=== PATIENT | male | born 1965 | race African-American/Black ===

== ENCOUNTER 2017-01-14 17:14 | Inpatient (IN) | payer OTHER ==
[2017-01-14 19:06] VITALS: BMI 24.1
--- NOTE | 2017-01-14 21:34 | HP ---
CIWA Score - CIWA Score Nausea/Vomitin Muscle Tremors: 3 Anxiety: 3 Agitation: 3 Paroxysmal Sweats: 2 Orientation: 0-Oriented Tacttile Disturbances: 2-Mild Itch/Numbness/Burn Auditory Disturbances: 2-Mild Harshness/Frighten Visual Disturbances: 2-Mild Sensitivity Headache: 2-Mild CIWA-Ar Total Score: 22 Admission ROS BHS - HPI Chief Complaint: i need help to atop drinking alcohol,cocaine and marijuana Allergies/Adverse Reactions: Allergies Allergy/AdvReac Type Severity Reaction Status Date / Time No Known Allergies Allergy Verified 01/14/17 21:29 History of Present Illness: this 51 years old male with alcohol,cocaine and marijuana dependence,seeking detox ,last detox in 11/23 at [facility] type 2 dm hypertension hiv since 1988 weight loss nicotine dependence longest period of sobriety 1 year Exam Limitations: No Limitations - Ebola screening Have you traveled outside of the country in the last 21 days: No (N) Have you had contact with anyone from an Ebola affected area: No Have you been sick,other than usual withdrawal symptoms: No Do you have a fever: No - Review of Systems Constitutional: Loss of Appetite, Malaise, Night Sweats, Changes in sleep, Weakness, Unintentional Wgt. Loss EENT: reports: Nose Congestion Respiratory: reports: No Symptoms reported Cardiac: reports: No Symptoms Reported GI: reports: Diarrhea, Nausea, Vomiting, Abdominal cramping : reports: No Symptoms Reported Musculoskeletal: reports: Back Pain, Muscle Pain Integumentary: reports: Dryness Neuro: reports: Headache, Tremors Endocrine: reports: No Symptoms Reported Hematology: reports: No Symptoms Reported, Other (hiv) Psychiatric: reports: No Sypmtoms Reported, Mood/Affect Appropiate, Orientated x3 Patient History - Patient Medical History Hx Anemia: No Hx Asthma: No Hx Chronic Obstructive Pulmonary Disease (COPD): No Hx Cancer: No Hx Cardiac Disorders: No Hx Congestive Heart Failure: No Hx Hypertension: Yes (non compliance) Hx Hypercholesterolemia: Yes (no med) Hx Pacemaker: No HX Cerebrovascular Accident: No Hx Seizures: No Hx Dementia: No Hx Diabetes: Yes (on metformin 500 mgs po bid) Hx Gastrointestinal Disorders: No Hx Liver Disease: No Hx Genitourinary Disorders: No Hx Sexually Transmitted Disorders: No Hx Renal Disease (ESRD): No Hx Thyroid Disease: No Hx Human Immunodeficiency Virus (HIV): Yes (since 1988 non compliance supposed triumeq) Hx Hepatitis C: Yes (no treatment) Hx Depression: No Hx Suicide Attempt: No Hx Bipolar Disorder: No Hx Schizophrenia: No Other Medical History: no suicidal,no homicidal - Patient Surgical History Past Surgical History: No - PPD History Previous Implant?: Yes Documented Results: Negative w/o proof Implanted On Prior R Admission?: No PPD to be Administered?: Yes - Smoking Cessation Smoking history: Current every day smoker Have you smoked in the past 12 months: Yes Aproximately how many cigarettes per day: 10 Hx Chewing Tobacco Use: No Initiated information on smoking cessation: Yes 'Breaking Loose' booklet given: 01/14/17 - Substance & Tx. History Hx Alcohol Use: Yes Hx Substance Use: Yes Substance Use Type: Alcohol, Cocaine, Marijuana Hx Substance Use Treatment: Yes (last [facility]) - Substances Abused Alcohol Route: Oral Frequency: Daily (1pint of vodka/8 of 12 ozs of beer) Amount used: 1 pint of vodka/8 of 12 ozs of beer Age of first use: 17 Date of Last Use: 01/14/17 Cocaine Route: Smoking Frequency: Daily Amount used: 200$ Age of first use: 31 Date of Last Use: 01/14/17 Marijuana/Hashish Route: Smoking Frequency: Daily Amount used: 50$ Age of first use: 17 Date of Last Use: 01/14/17 Family Disease History - Family Disease History Family History: Denies Admission Physical Exam BHS - Vital Signs Vital Signs: Vital Signs - 24 hr 01/14/17 18:26 Temperature 98.2 F Pulse Rate 77 Respiratory 16 Rate Blood Pressure 129/93 - Physical General Appearance: Yes: Moderate Distress, Tremorous, Irritable, Sweating, Anxious HEENTM: Yes: Nasal Congestion Respiratory: Yes: Lungs Clear, Normal Breath Sounds, No Respiratory Distress Neck: Yes: Within Normal Limits, Supple, Trachea in good position Breast: Yes: Within Normal Limits Cardiology: Yes: Within Normal Limits, Regular Rhythm, Regular Rate, S1, S2 Abdominal: Yes: Within Normal Limits, Normal Bowel Sounds, Non Tender, Flat, Soft Genitourinary: Yes: Within Normal Limits Back: Yes: Muscle Spasm Musculoskeletal: Yes: Back pain, Muscle Pain Neurological: Yes: cda teacher II-XII NML intact, Fully Oriented, Alert, Motor Strength 5/5 Integumentary: Yes: Dry Lymphatic: Yes: Within Normal Limits - Diagnostic (1) Alcohol dependence with uncomplicated withdrawal Current Visit: Yes Status: Acute (2) Cocaine dependence Current Visit: Yes Status: Acute (3) Cannabis dependence Current Visit: Yes Status: Acute (4) Weight loss Current Visit: Yes Status: Acute (5) Syncope Current Visit: Yes Status: Acute (6) Nicotine dependence Current Visit: Yes Status: Acute (7) HIV (human immunodeficiency virus infection) Current Visit: Yes Status: Acute (8) Essential hypertension Current Visit: Yes Status: Acute (9) DM2 (diabetes mellitus, type 2) Current Visit: Yes Status: Acute (10) Hepatitis C Current Visit: Yes Status: Acute Cleared for Admission S - Detox or Rehab [facility] Level of Care: Medically Managed Detox Regimen/Protocol: Librium [facility] Breath Alcohol Content Breath Alcohol Content: 0 Urine Drug Screen - Results Drug Screen Negative: No Urine Drug Screen Results: THC-Marijuana, GRISEL-Cocaine
[2017-01-14] MEDS ORDERED: chlordiazePOXIDE HCL 25 MG CAPSULE PO ONE (21:59)
[2017-01-14] MEDS ORDERED: MAGNESIUM HYDROX 2400MG/30ML ORAL SUSPENSION 30 ML CUP PO PRN (21:59)
[2017-01-14] MEDS ORDERED: ACETAMINOPHEN 325 MG TABLET (FP) PO PRN (21:59)
[2017-01-14] MEDS ORDERED: LOPERAMIDE HCL 2 MG CAPSULE PO PRN (21:59)
[2017-01-14] MEDS ORDERED: P-EPHED 60MG/TRIPROLIDI 2.5MG TABLET PO PRN (21:59)
[2017-01-14] MEDS ORDERED: guaiFENesin/D-METHORPHAN HB 10 ML UNIT-DOSE CUPS PO PRN (21:59)
[2017-01-14] MEDS ORDERED: MAG HYDROX/AL HYDROX/SIMETH 30 ML UNIT-DOSE CUP PO PRN (21:59)
[2017-01-14] MEDS ORDERED: IBUPROFEN 400 MG TABLET (FP) PO PRN (21:59)
[2017-01-14] MEDS ORDERED: MENTHOL/PHENOL 1 EACH UD MM PRN (21:59)
[2017-01-14] MEDS ORDERED: MAGNESIUM CITRATE 300 ML BOTTLE PO PRN (21:59)
[2017-01-14] MEDS ORDERED: hydrOXYzine PAMOATE 25 MG CAPSULE (FP) PO PRN (21:59)
[2017-01-14] MEDS ORDERED: chlordiazePOXIDE HCL 25 MG CAPSULE PO PRN (21:59)
[2017-01-14] MEDS ORDERED: diphenhydrAMINE HCL 50 MG CAPSULE PO PRN (21:59)
[2017-01-14] MEDS ORDERED: NICOTINE POLACRILEX 2 MG GUM BC PRN (21:59)
[2017-01-14] MEDS: chlordiazePOXIDE HCL 25 MG CAPSULE PO SCH (23:17)
[2017-01-14] MEDS: THIAMINE HCL 100 MG TABLET (FP) PO SCH (23:24)
[2017-01-15 01:01] LABS: URINE APPEARANCE CLEAR; URINE BILIRUBIN NEGATIVE (NEGATIVE); URINE BLOOD NEGATIVE (NEGATIVE); URINE COLOR YELLOW; URINE GLUCOSE (UA) 3+ (NEGATIVE); URINE KETONE TRACE (NEGATIVE); URINE LEUK ESTERASE NEGATIVE (NEGATIVE); URINE NITRITE NEGATIVE (NEGATIVE); URINE UROBILINOGEN NEGATIVE mg/dL (0.2-1.0)
[2017-01-15 01:16] LABS: URINE PROTEIN 1+ (NEGATIVE)
[2017-01-15 01:20] LABS: GRANULAR CASTS 4 /lpf; URINE BACTERIA RARE /hpf (NONE SEEN); URINE HYALINE CAST 7 /lpf; URINE RBC 1 /hpf (0-3); URINE WBC <1 /hpf (3-5)
[2017-01-15] MEDS: metFORMIN HCL 500 MG TABLET (FP) PO SCH ×2 (06:15→17:47)
[2017-01-15] MEDS: chlordiazePOXIDE HCL 25 MG CAPSULE PO SCH ×4 (06:15→22:37)
[2017-01-15] MEDS ORDERED: metFORMIN HCL 500 MG TABLET (FP) PO ONE (07:00)
[2017-01-15] MEDS ORDERED: INSULIN (NOVOLOG) ASPART 100 UNITS/ML 10ML VIAL SQ ONE (07:23)
--- NOTE | 2017-01-15 09:30 | PN ---
S CIWA - CIWA Score Nausea/Vomitin Muscle Tremors: 3 Anxiety: 3 Agitation: 3 Paroxysmal Sweats: 1-Minimal Palms Moist Orientation: 0-Oriented Tacttile Disturbances: 1-Very Mild Itch/Numbness Auditory Disturbances: 1-Very Mild Visual Disturbances: 0-None Headache: 2-Mild CIWA-Ar Total Score: 17 BHS Progress Note (SOAP) Subjective: ALERT,IRRITABLE,ANXIOUS,INTERRUPTED SLEEP,TREMOR,ACHING PAIN Objective: 01/15/17 09:27 Vital Signs Temperature 97.9 F 01/15/17 06:16 Pulse Rate 76 01/15/17 06:16 Respiratory Rate 18 01/15/17 06:16 Blood Pressure 128/74 01/15/17 06:16 O2 Sat by Pulse Oximetry (%) 01/15/17 09:28 EKG NSR NO CHEST PAIN,NO SOB,NO DIZZINESS Laboratory Last Values Urine Color Yellow 01/15/17 00:30 Urine Appearance Clear 01/15/17 00:30 Urine pH 5.0 (5.0-8.0) 01/15/17 00:30 Urine Protein 1+ (NEGATIVE) H 01/15/17 00:30 Urine Glucose (UA) 3+ (NEGATIVE) H 01/15/17 00:30 Urine Ketones Trace (NEGATIVE) H 01/15/17 00:30 Urine Blood Negative (NEGATIVE) 01/15/17 00:30 Urine Nitrite Negative (NEGATIVE) 01/15/17 00:30 Urine Bilirubin Negative (NEGATIVE) 01/15/17 00:30 Urine Urobilinogen Negative mg/dL (0.2-1.0) 01/15/17 00:30 Ur Leukocyte Esterase Negative (NEGATIVE) 01/15/17 00:30 Urine RBC 1 /hpf (0-3) 01/15/17 00:30 Urine WBC <1 /hpf (3-5) 01/15/17 00:30 Ur Epithelial Cells Rare /hpf (FEW) 01/15/17 00:30 Urine Bacteria Rare /hpf (NONE SEEN) 01/15/17 00:30 Hyaline Casts 7 /lpf 01/15/17 00:30 Granular Casts 4 /lpf 01/15/17 00:30 Assessment: 01/15/17 09:29 WITHDRAWAL SYMPTOM Plan: CONTINUE DETOX
[2017-01-15 09:59] LABS: MCH 23.6 pg (25.7-33.7); MCHC 30.2 g/dl (32.0-35.9); MEAN CELL VOLUME 78.2 fl (80-96); PLATELET COUNT 237 K/MM3 (134-434); RDW 17.7 % (11.9-15.9); WHITE BLOOD COUNT 3.8 K/mm3 (4.0-10.0)
[2017-01-15] MEDS: PRENATAL VITAMINS W/ FOLIC ACID TABLET (FP) PO SCH (10:34)
[2017-01-15] MEDS: INSULIN SLIDING SCALE (NOVOLOG) 1 VIAL SQ SCH ×2 (10:35→17:49)
[2017-01-15] MEDS: LISINOPRIL 10 MG TABLET (FP) PO SCH (10:35)
[2017-01-15 10:41] LABS: ALBUMIN 2.8 g/dl (3.4-5.0); ALK PHOS 59 U/L (45-117); ANION GAP 10 (8-16); BILIRUBIN,TOTAL 0.2 mg/dL (0.2-1.0); CALCIUM 9.3 mg/dL (8.5-10.1); CO2 25 mmol/L (21-32); CREATININE 1.3 mg/dL (0.7-1.3); SGOT/AST 19 U/L (15-37); SGPT/ALT 14 U/L (12-78); TOT PROT 6.9 g/dl (6.4-8.2)
[2017-01-15 10:56] LABS: GLUCOSE,RANDOM 655 mg/dL (74-106)
[2017-01-15] MEDS ORDERED: INSULIN (NOVOLOG) ASPART 100 UNITS/ML 10ML VIAL ONE ×3 (11:24→21:10)
[2017-01-15] MEDS: INSULIN (NOVOLOG) ASPART 100 UNITS/ML 10ML VIAL SQ SCH ×3 (11:43→22:37)
--- NOTE | 2017-01-15 14:50 | EKG ---
Test Reason : Blood Pressure : / mmHG Vent. Rate : 065 BPM Atrial Rate : 065 BPM P-R Int : 222 ms QRS Dur : 072 ms QT Int : 436 ms P-R-T Axes : 078 056 060 degrees QTc Int : 453 ms SINUS RHYTHM WITH 1ST DEGREE A-V BLOCK POSSIBLE LEFT ATRIAL ENLARGEMENT NONSPECIFIC ST ABNORMALITY ABNORMAL ECG NO PREVIOUS ECGS AVAILABLE Confirmed by BASIL FAITH MD ([id number]) on 01/15/2017 2:49:56 PM Referred By: Confirmed By:BASIL FAITH MD
--- NOTE | 2017-01-15 14:50 | EKG ---
Test Reason : Blood Pressure : / mmHG Vent. Rate : 076 BPM Atrial Rate : 076 BPM P-R Int : 198 ms QRS Dur : 078 ms QT Int : 394 ms P-R-T Axes : 075 072 071 degrees QTc Int : 443 ms NORMAL SINUS RHYTHM EARLY REPOLARIZATION NORMAL ECG WHEN COMPARED WITH ECG OF 14-JAN-2017 22:22, NO SIGNIFICANT CHANGE WAS FOUND Confirmed by BASIL FAITH MD ([id number]) on 01/15/2017 2:49:41 PM Referred By: Confirmed By:BASIL FAITH MD
[2017-01-15] MEDS: THIAMINE HCL 100 MG TABLET (FP) PO SCH (22:38)
[2017-01-16] MEDS: metFORMIN HCL 500 MG TABLET (FP) PO SCH ×2 (06:08→17:25)
[2017-01-16] MEDS: chlordiazePOXIDE HCL 25 MG CAPSULE PO SCH ×3 (06:08→17:37)
[2017-01-16] MEDS ORDERED: INSULIN (NOVOLOG) ASPART 100 UNITS/ML 10ML VIAL ONE ×5 (06:46→22:13)
[2017-01-16] MEDS: INSULIN SLIDING SCALE (NOVOLOG) 1 VIAL SQ SCH ×3 (06:54→17:30)
[2017-01-16] MEDS: INSULIN (NOVOLOG) ASPART 100 UNITS/ML 10ML VIAL SQ SCH ×4 (07:03→22:11)
--- NOTE | 2017-01-16 10:16 | PN ---
S CIWA - CIWA Score Nausea/Vomitin Muscle Tremors: 3 Anxiety: 3 Agitation: 3 Paroxysmal Sweats: 1-Minimal Palms Moist Orientation: 0-Oriented Tacttile Disturbances: 1-Very Mild Itch/Numbness Auditory Disturbances: 1-Very Mild Visual Disturbances: 1-Very Mild Sensitivity Headache: 2-Mild CIWA-Ar Total Score: 18 BHS Progress Note (SOAP) Subjective: alert,irritable,anxious,interrupted sleep,tremor Objective: 01/16/17 10:13 Vital Signs Temperature 97.7 F 01/16/17 10:00 Pulse Rate 110 H 01/16/17 10:00 Respiratory Rate 18 01/16/17 10:00 Blood Pressure 101/65 01/16/17 10:00 O2 Sat by Pulse Oximetry (%) Abnormal Lab Results 01/15/17 01/15/17 01/15/17 00:30 07:40 09:10 Sodium 131 L Chloride 96 L BUN 22 H Random Glucose 655 H* Hemoglobin A1c % 12.0 H Albumin 2.8 L Urine Protein 1+ H Urine Glucose (UA) 3+ H Urine Ketones Trace H bgm 444 Assessment: 01/16/17 10:14 withdrawal symptom Plan: continue detox,bgm monitoring with insulin coverage
[2017-01-16] MEDS: LISINOPRIL 10 MG TABLET (FP) PO SCH (10:29)
[2017-01-16] MEDS: PRENATAL VITAMINS W/ FOLIC ACID TABLET (FP) PO SCH (10:30)
[2017-01-16] MEDS: THIAMINE HCL 100 MG TABLET (FP) PO SCH (22:10)
[2017-01-16] MEDS: chlordiazePOXIDE 5 MG CAPSULE PO SCH (22:10)
[2017-01-17] MEDS ORDERED: INSULIN (NOVOLOG) ASPART 100 UNITS/ML 10ML VIAL ONE ×3 (06:23→16:39)
[2017-01-17] MEDS: INSULIN (NOVOLOG) ASPART 100 UNITS/ML 10ML VIAL SQ SCH ×2 (06:23→11:31)
[2017-01-17] MEDS: metFORMIN HCL 500 MG TABLET (FP) PO SCH ×2 (06:23→16:40)
[2017-01-17] MEDS: chlordiazePOXIDE 5 MG CAPSULE PO SCH ×3 (06:25→16:50)
--- NOTE | 2017-01-17 09:38 | PN ---
S Progress Note (SOAP) Subjective: alert,irritable,anxious,interrupted sleep Objective: 01/17/17 09:34 Vital Signs Temperature 98.3 F 01/17/17 06:19 Pulse Rate 75 01/17/17 06:19 Respiratory Rate 18 01/17/17 06:19 Blood Pressure 145/89 01/17/17 06:19 O2 Sat by Pulse Oximetry (%) Laboratory Last Values WBC 3.8 K/mm3 (4.0-10.0) L 01/15/17 07:40 RBC 4.37 M/mm3 (4.00-5.60) 01/15/17 07:40 Hgb 10.3 GM/dL (11.7-16.9) L 01/15/17 07:40 Hct 34.1 % (35.4-49) L 01/15/17 07:40 MCV 78.2 fl (80-96) L 01/15/17 07:40 MCH 23.6 pg (25.7-33.7) L 01/15/17 07:40 MCHC 30.2 g/dl (32.0-35.9) L 01/15/17 07:40 RDW 17.7 % (11.9-15.9) H 01/15/17 07:40 Plt Count 237 K/MM3 (134-434) 01/15/17 07:40 MPV 9.0 fl (7.5-11.1) 01/15/17 07:40 Sodium 131 mmol/L (136-145) L 01/15/17 07:40 Potassium 4.9 mmol/L (3.5-5.1) 01/15/17 07:40 Chloride 96 mmol/L (98-107) L 01/15/17 07:40 Carbon Dioxide 25 mmol/L (21-32) 01/15/17 07:40 Anion Gap 10 (8-16) 01/15/17 07:40 BUN 22 mg/dL (7-18) H 01/15/17 07:40 Creatinine 1.3 mg/dL (0.7-1.3) 01/15/17 07:40 Creat Clearance w eGFR 58.43 (>60) 01/15/17 07:40 POC Glucometer 368 UNITS (()) 01/17/17 06:18 Random Glucose 655 mg/dL (74-106) H* 01/15/17 07:40 Hemoglobin A1c % 12.0 % (4.8-6.0) H 01/15/17 09:10 Calcium 9.3 mg/dL (8.5-10.1) 01/15/17 07:40 Total Bilirubin 0.2 mg/dL (0.2-1.0) 01/15/17 07:40 AST 19 U/L (15-37) 01/15/17 07:40 ALT 14 U/L (12-78) 01/15/17 07:40 Alkaline Phosphatase 59 U/L (45-117) 01/15/17 07:40 Total Protein 6.9 g/dl (6.4-8.2) 01/15/17 07:40 Albumin 2.8 g/dl (3.4-5.0) L 01/15/17 07:40 Urine Color Yellow 01/15/17 00:30 Urine Appearance Clear 01/15/17 00:30 Urine pH 5.0 (5.0-8.0) 01/15/17 00:30 Ur Specific [place] 1.015 (1.005-1.025) 01/15/17 00:30 Urine Protein 1+ (NEGATIVE) H 01/15/17 00:30 Urine Glucose (UA) 3+ (NEGATIVE) H 01/15/17 00:30 Urine Ketones Trace (NEGATIVE) H 01/15/17 00:30 Urine Blood Negative (NEGATIVE) 01/15/17 00:30 Urine Nitrite Negative (NEGATIVE) 01/15/17 00:30 Urine Bilirubin Negative (NEGATIVE) 01/15/17 00:30 Urine Urobilinogen Negative mg/dL (0.2-1.0) 01/15/17 00:30 Ur Leukocyte Esterase Negative (NEGATIVE) 01/15/17 00:30 Urine RBC 1 /hpf (0-3) 01/15/17 00:30 Urine WBC <1 /hpf (3-5) 01/15/17 00:30 Ur Epithelial Cells Rare /hpf (FEW) 01/15/17 00:30 Urine Bacteria Rare /hpf (NONE SEEN) 01/15/17 00:30 Hyaline Casts 7 /lpf 01/15/17 00:30 Granular Casts 4 /lpf 01/15/17 00:30 RPR Titer Nonreactive (NONREACTIVE) 01/15/17 07:40 Assessment: 01/17/17 09:34 withdrawal symptom Plan: continue detox,bgm monitoring with insulin coverage,discharge in am
[2017-01-17] MEDS: PRENATAL VITAMINS W/ FOLIC ACID TABLET (FP) PO SCH (10:14)
[2017-01-17] MEDS: LISINOPRIL 10 MG TABLET (FP) PO SCH (10:15)
[2017-01-17] MEDS ORDERED: INSULIN (NOVOLOG) ASPART 100 UNITS/ML 10ML VIAL SQ ONE (11:32)
[2017-01-17] MEDS ORDERED: INSULIN (NOVOLOG) ASPART 100 UNITS/ML 10ML VIAL SQ SCH (11:32)
[2017-01-17 18:07] VITALS: BP 114/84; PULSE 93; TEMP 97.9
--- NOTE | 2017-01-17 22:40 | DS ---
[facility] Detox Discharge Summary Admission Date: 01/14/17 Discharge Date: 01/17/17 - History Present History: Alcohol Dependence, Cannabis Dependence, Cocaine Dependence Additional Comments: RECEIVED NURSE REPORTS THAT THE PATIENT WANTS TO LEAVE THE DETOX THAT SOMEONE IS WAITING FOR HIM PATIENT REFUSES TO WAIT FOR THE PROVIDER, LISINOPRIL + METFORMIN E PRESCRIPTION SENT Pertinent Past History: DIABETES II HYPERTENSION HIV HEPATITIS C WEIGHT LOSS NICOTINE DEPENDENCE - Physical Exam Results Vital Signs: Vital Signs Temperature 97.9 F 01/17/17 18:07 Pulse Rate 93 H 01/17/17 18:07 Respiratory Rate 20 01/17/17 18:07 Blood Pressure 114/84 01/17/17 18:07 O2 Sat by Pulse Oximetry (%) Pertinent Admission Physical Exam Findings: WITHDRAWAL SX Laboratory Last Values WBC 3.8 K/mm3 (4.0-10.0) L 01/15/17 07:40 RBC 4.37 M/mm3 (4.00-5.60) 01/15/17 07:40 Hgb 10.3 GM/dL (11.7-16.9) L 01/15/17 07:40 Hct 34.1 % (35.4-49) L 01/15/17 07:40 MCV 78.2 fl (80-96) L 01/15/17 07:40 MCH 23.6 pg (25.7-33.7) L 01/15/17 07:40 MCHC 30.2 g/dl (32.0-35.9) L 01/15/17 07:40 RDW 17.7 % (11.9-15.9) H 01/15/17 07:40 Plt Count 237 K/MM3 (134-434) 01/15/17 07:40 MPV 9.0 fl (7.5-11.1) 01/15/17 07:40 Sodium 131 mmol/L (136-145) L 01/15/17 07:40 Potassium 4.9 mmol/L (3.5-5.1) 01/15/17 07:40 Chloride 96 mmol/L (98-107) L 01/15/17 07:40 Carbon Dioxide 25 mmol/L (21-32) 01/15/17 07:40 Anion Gap 10 (8-16) 01/15/17 07:40 BUN 22 mg/dL (7-18) H 01/15/17 07:40 Creatinine 1.3 mg/dL (0.7-1.3) 01/15/17 07:40 Creat Clearance w eGFR 58.43 (>60) 01/15/17 07:40 POC Glucometer 379 UNITS (()) 01/17/17 16:34 Random Glucose 655 mg/dL (74-106) H* 01/15/17 07:40 Hemoglobin A1c % 12.0 % (4.8-6.0) H 01/15/17 09:10 Calcium 9.3 mg/dL (8.5-10.1) 01/15/17 07:40 Total Bilirubin 0.2 mg/dL (0.2-1.0) 01/15/17 07:40 AST 19 U/L (15-37) 01/15/17 07:40 ALT 14 U/L (12-78) 01/15/17 07:40 Alkaline Phosphatase 59 U/L (45-117) 01/15/17 07:40 Total Protein 6.9 g/dl (6.4-8.2) 01/15/17 07:40 Albumin 2.8 g/dl (3.4-5.0) L 01/15/17 07:40 Urine Color Yellow 01/15/17 00:30 Urine Appearance Clear 01/15/17 00:30 Urine pH 5.0 (5.0-8.0) 01/15/17 00:30 Ur Specific [place] 1.015 (1.005-1.025) 01/15/17 00:30 Urine Protein 1+ (NEGATIVE) H 01/15/17 00:30 Urine Glucose (UA) 3+ (NEGATIVE) H 01/15/17 00:30 Urine Ketones Trace (NEGATIVE) H 01/15/17 00:30 Urine Blood Negative (NEGATIVE) 01/15/17 00:30 Urine Nitrite Negative (NEGATIVE) 01/15/17 00:30 Urine Bilirubin Negative (NEGATIVE) 01/15/17 00:30 Urine Urobilinogen Negative mg/dL (0.2-1.0) 01/15/17 00:30 Ur Leukocyte Esterase Negative (NEGATIVE) 01/15/17 00:30 Urine RBC 1 /hpf (0-3) 01/15/17 00:30 Urine WBC <1 /hpf (3-5) 01/15/17 00:30 Ur Epithelial Cells Rare /hpf (FEW) 01/15/17 00:30 Urine Bacteria Rare /hpf (NONE SEEN) 01/15/17 00:30 Hyaline Casts 7 /lpf 01/15/17 00:30 Granular Casts 4 /lpf 01/15/17 00:30 RPR Titer Nonreactive (NONREACTIVE) 01/15/17 07:40 LAB NOTED - Treatment Hospital Course: Detox Protocol Followed, Responded well Patient has Accepted a Rehab Referral to: PATIENT HAS 2 DAYS AUTHORIZATION FOR INPATIENT REHAB - Medication Discharge Medications: Ambulatory Orders Abacavir/Dolutegravir/Lamivudi [Triumeq Tablet] 1 each PO DAILY 01/14/17 Lisinopril [Prinivil -] 20 mg PO DAILY 01/14/17 Metformin HCl [Glucophage -] 500 mg PO BID 01/14/17 - Diagnosis (1) Alcohol dependence with uncomplicated withdrawal Status: Acute (2) DM2 (diabetes mellitus, type 2) Status: Chronic Qualifiers: Diabetes mellitus complication status: without complication Diabetes mellitus prison insulin use: without prison use Qualified Code(s): E11.9 - Type 2 diabetes mellitus without complications (3) Essential hypertension Status: Chronic (4) HIV (human immunodeficiency virus infection) Status: Chronic (5) Hepatitis C Status: Chronic Qualifiers: Viral hepatitis chronicity: chronic Hepatic coma status: without hepatic coma Qualified Code(s): B18.2 - Chronic viral hepatitis C (6) Nicotine dependence Status: Acute Qualifiers: Nicotine product type: cigarettes Substance use status: in withdrawal Qualified Code(s): F17.213 - Nicotine dependence, cigarettes, with withdrawal - AMA Did Patient Leave Against Medical Advice: Yes
[2017-01-17] MEDS ORDERED: chlordiazePOXIDE HCL 10 MG CAPSULE PO SCH (23:00)
== END 2017-01-17 17:41 | disposition left against medical advice (07) | DRG 770 ==
LOC: YASAS 17:14 → Y6N 21:42
PROVIDERS: ADMIT Internal Medicine; ATTEND Internal Medicine
PROC: HZ2ZZZZ Detoxification Services for Substance Abuse Treatment (ICD-10-PCS; principal; 2017-01-14)
DX: F10.230 Alcohol dependence with withdrawal, uncomplicated (principal); F14.20 Cocaine dependence, uncomplicated; F12.20 Cannabis dependence, uncomplicated; F17.213 Nicotine dependence, cigarettes, with withdrawal; E11.9 Type 2 diabetes mellitus without complications; I10 Essential (primary) hypertension; Z21 Asymptomatic human immunodeficiency virus [HIV] infection status; B18.2 Chronic viral hepatitis C; Z79.84 Long term (current) use of oral hypoglycemic drugs; Z87.898 Personal history of other specified conditions; Z86.79 Personal history of other diseases of the circulatory system; Z91.14 Patient's other noncompliance with medication regimen
CPT/HCPCS: 36415; 80053; 81003; 81015; 83036; 85027; 86593; 93005; 93010

== ENCOUNTER 2018-03-17 13:12 | Inpatient (IN) | payer OTHER ==
[2018-03-17 13:52] VITALS: BMI 21.9
--- NOTE | 2018-03-17 17:07 | HP ---
CIWA Score - CIWA Score Nausea/Vomitin-No Nausea/No Vomiting Muscle Tremors: None Anxiety: 0-No Anxiety, at Ease Agitation: 0-Normal Activity Paroxysmal Sweats: No Perspiration Orientation: 0-Oriented Tacttile Disturbances: 0-None Auditory Disturbances: 0-None Visual Disturbances: 0-None Headache: 0-None Present CIWA-Ar Total Score: 0 Admission ROS BHS - HPI Allergies/Adverse Reactions: Allergies Allergy/AdvReac Type Severity Reaction Status Date / Time Fish Containing Products Allergy Verified 03/17/18 16:42 No Known Drug Allergies Allergy Verified 03/17/18 16:42 tomato Allergy Verified 03/17/18 16:42 History of Present Illness: pt here requesting detox from etoh use , reports irritability and tremors if not drinking, latest use 2 nights ago , currently asymptomatic . pt is [place] , denies sseizures , + blackouts , denies falls, + 12 oz x 10 cans /day x 16 years , drinking most days , starts drinking around 11 am. Currently with " high" glucometer reading , reports did not take meds today , resides at [facility] . pmhx : DM , htn , hiv pshx : denies meds confirmed by pharmacy " Humalog 15 units tid ac , triumeq , metformin 1000 bid , lisinopril 20 mg tobacco 1/4 ppd went to hospital last night because " I did not have my medicine , my blood sugar was high " from description [facility] . utox + THC< + GRISEL cocaine : 50 $ /day , cannabis - last use 2 d ago . - Ebola screening Have you traveled outside of the country in the last 21 days: No Have you had contact with anyone from an Ebola affected area: No Have you been sick,other than usual withdrawal symptoms: No Do you have a fever: No - Review of Systems Constitutional: See HPI, Malaise EENT: reports: Hearing Loss, Other (misisng teeth) : reports: No Symptoms Reported Musculoskeletal: reports: No Symptoms Reported Integumentary: reports: No Symptoms Reported Neuro: reports: No Symptoms reported Endocrine: reports: Other (DM) Psychiatric: reports: No Sypmtoms Reported, Orientated x3 Patient History - Patient Medical History Hx Anemia: No Hx Asthma: No Hx Chronic Obstructive Pulmonary Disease (COPD): No Hx Cancer: No Hx Cardiac Disorders: No Hx Congestive Heart Failure: No Hx Hypertension: Yes (on meds.) Hx Hypercholesterolemia: Yes (no med) Hx Pacemaker: No HX Cerebrovascular Accident: No Hx Seizures: No Hx Dementia: No Hx Diabetes: Yes Hx Gastrointestinal Disorders: No Hx Liver Disease: No Hx Genitourinary Disorders: No Hx Sexually Transmitted Disorders: No Hx Renal Disease (ESRD): No Hx Thyroid Disease: No Hx Human Immunodeficiency Virus (HIV): Yes (since 1988 non compliance supposed triumeq) Hx Hepatitis C: Yes (no treatment) Hx Depression: No Hx Suicide Attempt: No Hx Bipolar Disorder: No Hx Schizophrenia: No - Patient Surgical History Past Surgical History: No Hx Neurologic Surgery: No Hx Cataract Extraction: No Hx Cardiac Surgery: No Hx Lung Surgery: No Hx Breast Surgery: No Hx Breast Biopsy: No Hx Abdominal Surgery: No Hx Appendectomy: No Hx Cholecystectomy: No Hx Genitourinary Surgery: No Hx Section: No Hx Orthopedic Surgery: No Anesthesia Reaction: No - PPD History Previous Implant?: Yes Documented Results: Negative w/o proof Implanted On Prior [facility] Admission?: No Date: 01/16/17 Results: 0 mm - Smoking Cessation Smoking history: Current every day smoker Have you smoked in the past 12 months: Yes Aproximately how many cigarettes per day: 4 Hx Chewing Tobacco Use: No Initiated information on smoking cessation: No - Substances Abused Alcohol Route: Oral Frequency: Daily Amount used: 10 beers Age of first use: 17 Date of Last Use: 03/15/18 Cocaine Route: Smoking Frequency: Daily Amount used: $30 Age of first use: 38 Date of Last Use: 03/15/18 Marijuana/Hashish Route: Smoking Frequency: Daily Amount used: $5 Age of first use: 17 Date of Last Use: 03/15/18 Family Disease History - Family Disease History Family Disease History: Diabetes: Grandparent, Mother, Other: Father (unknown ) Admission Physical Exam S - Vital Signs Vital Signs: Vital Signs - 24 hr 03/17/18 13:50 Temperature 99.6 F Pulse Rate 87 Respiratory 18 Rate Blood Pressure 143/94 - Physical General Appearance: Yes: Nourished, Appropriately Dressed, Mild Distress HEENTM: Yes: EOMI, Hearing grossly Normal, Normal ENT Inspection, Normocephalic , Normal Voice, JASON, Pharynx Normal, Other (poor dentition [place] glasses - broken , did not bring) Respiratory: Yes: Within Normal Limits, Chest Non-Tender, Lungs Clear, Normal Breath Sounds, No Respiratory Distress, No Accessory Muscle Use Neck: Yes: Within Normal Limits, No masses,lesions,Nodules, Trachea in good position Cardiology: Yes: Regular Rhythm, Regular Rate, Tachycardia Abdominal: Yes: Within Normal Limits, Normal Bowel Sounds, Non Tender, Flat, Soft Genitourinary: Yes: Within Normal Limits Back: Yes: Within Normal Limits, Normal Inspection Musculoskeletal: Yes: Within Normal Limits, full range of Motion, Gait Steady, Pelvis Stable Extremities: Yes: Within Normal Limits, Normal Capillary Refill, Normal Inspection, Normal Range of Motion, Non-Tender Neurological: Yes: Within Normal Limits, Fully Oriented, Alert, Motor Strength 5 /5, Normal Mood/Affect, Normal Response, Depressed Affect Integumentary: Yes: Within Normal Limits, Normal Color, Dry, Warm - Diagnostic (1) Alcohol dependence with uncomplicated withdrawal Current Visit: No Status: Acute (2) Cannabis dependence Current Visit: No Status: Acute (3) Cocaine dependence Current Visit: No Status: Acute Qualifiers: Substance use status: uncomplicated Qualified Code(s): F14.20 - Cocaine dependence, uncomplicated (4) Nicotine dependence Current Visit: No Status: Acute Qualifiers: Nicotine product type: cigarettes Substance use status: in withdrawal Qualified Code(s): F17.213 - Nicotine dependence, cigarettes, with withdrawal (5) Weight loss Current Visit: No Status: Acute (6) DM2 (diabetes mellitus, type 2) Current Visit: No Status: Chronic Qualifiers: Diabetes mellitus terminal operator insulin use: with terminal operator use Diabetes mellitus complication status: with unspecified complications Qualified Code(s) : E11.8 - Type 2 diabetes mellitus with unspecified complications; Z79.4 - watermelon inspector (current) use of insulin (7) Essential hypertension Current Visit: No Status: Chronic BHS Breath Alcohol Content Breath Alcohol Content: 0 Urine Drug Screen - Results Drug Screen Negative: No Urine Drug Screen Results: THC-Marijuana, GRISEL-Cocaine
[2018-03-17] MEDS ORDERED: P-EPHED 60MG/TRIPROLIDI 2.5MG TABLET PO PRN (17:14)
[2018-03-17] MEDS ORDERED: MAG HYDROX/AL HYDROX/SIMETH 30 ML UNIT-DOSE CUP PO PRN (17:14)
[2018-03-17] MEDS ORDERED: LOPERAMIDE HCL 2 MG CAPSULE PO PRN (17:14)
[2018-03-17] MEDS ORDERED: MAGNESIUM HYDROX 2400MG/30ML ORAL SUSPENSION 30 ML CUP PO PRN (17:14)
[2018-03-17] MEDS ORDERED: ACETAMINOPHEN 325 MG TABLET (FP) PO PRN (17:14)
[2018-03-17] MEDS ORDERED: IBUPROFEN 400 MG TABLET (FP) PO PRN (17:14)
[2018-03-17] MEDS ORDERED: diazePAM 5 MG TABLET PO PRN (17:14)
[2018-03-17] MEDS ORDERED: MAGNESIUM CITRATE 300 ML BOTTLE PO PRN (17:14)
[2018-03-17] MEDS ORDERED: MENTHOL/PHENOL 1 EACH UD MM PRN (17:14)
[2018-03-17] MEDS ORDERED: guaiFENesin/D-METHORPHAN HB 10 ML UNIT-DOSE CUPS PO PRN (17:14)
[2018-03-17] MEDS ORDERED: diazePAM 5 MG TABLET PO ONE (17:45)
[2018-03-17] MEDS ORDERED: metFORMIN HCL 500 MG TABLET (FP) PO ONE (17:45)
[2018-03-17] MEDS ORDERED: INSULIN (NOVOLOG) ASPART 100 UNITS/ML 10ML VIAL ONE ×2 (17:56→21:47)
[2018-03-17] MEDS: INSULIN (NOVOLOG) ASPART 100 UNITS/ML 10ML VIAL SQ SCH (17:56)
[2018-03-17] MEDS ORDERED: MELATONIN 5 MG TABLETS PO PRN (22:00)
[2018-03-17] MEDS: THIAMINE HCL 100 MG TABLET (FP) PO SCH (22:10)
[2018-03-17] MEDS: diazePAM 5 MG TABLET PO SCH (22:11)
[2018-03-17] MEDS: INSULIN SLIDING SCALE (NOVOLOG) 1 VIAL SQ SCH (22:11)
[2018-03-18] MEDS: diazePAM 5 MG TABLET PO SCH ×3 (07:09→22:14)
[2018-03-18] MEDS: metFORMIN HCL 500 MG TABLET (FP) PO SCH ×2 (07:10→17:24)
[2018-03-18] MEDS: INSULIN (NOVOLOG) ASPART 100 UNITS/ML 10ML VIAL SQ SCH ×3 (07:11→16:39)
[2018-03-18] MEDS ORDERED: INSULIN (NOVOLOG) ASPART 100 UNITS/ML 10ML VIAL ONE ×2 (07:40→11:35)
[2018-03-18] MEDS: INSULIN SLIDING SCALE (NOVOLOG) 1 VIAL SQ SCH ×3 (07:55→16:38)
--- NOTE | 2018-03-18 09:51 | EKG ---
Test Reason : Blood Pressure : / mmHG Vent. Rate : 067 BPM Atrial Rate : 067 BPM P-R Int : 212 ms QRS Dur : 072 ms QT Int : 404 ms P-R-T Axes : 061 049 061 degrees QTc Int : 426 ms POOR DATA QUALITY, INTERPRETATION MAY BE ADVERSELY AFFECTED SINUS RHYTHM WITH 1ST DEGREE A-V BLOCK OTHERWISE NORMAL ECG WHEN COMPARED WITH ECG OF 15-JAN-2017 06:01, NO SIGNIFICANT CHANGE WAS FOUND Confirmed by TA BOWMAN MD ([id number]) on 03/18/2018 9:51:23 AM Referred By: Confirmed By:TA BOWMAN MD
[2018-03-18] MEDS ORDERED: LISINOPRIL 20 MG TABLET (FP) PO SCH (10:00)
[2018-03-18] MEDS ORDERED: PRENATAL VITAMINS W/ FOLIC ACID TABLET (FP) PO SCH (10:00)
[2018-03-18] MEDS ORDERED: ABACAVIR/DOLUTEGRAVIR/LAMIVUDI (TRIUMEQ) TABLET -NF PO SCH (10:00)
[2018-03-18 10:09] LABS: HEMATOCRIT 32.7 % (35.4-49); MCH 22.7 pg (25.7-33.7); MCHC 30.6 g/dl (32.0-35.9); MEAN CELL VOLUME 74.3 fl (80-96); PLATELET COUNT 167 K/MM3 (134-434); RDW 16.9 % (11.9-15.9); WHITE BLOOD COUNT 5.2 K/mm3 (4.0-10.0)
[2018-03-18 10:34] LABS: ALBUMIN 2.8 g/dl (3.4-5.0); ALK PHOS 75 U/L (45-117); ANION GAP 7 MMOL/L (8-16); BILIRUBIN,TOTAL 0.3 mg/dL (0.2-1); BLOOD UREA NITROGEN 21 mg/dL (7-18); CHLORIDE 98 mmol/L (98-107); CO2 27 mmol/L (21-32); POTASSIUM 4.2 mmol/L (3.5-5.1); SGOT/AST 32 U/L (15-37); SGPT/ALT 16 U/L (13-61); SODIUM 132 mmol/L (136-145)
[2018-03-18 10:55] LABS: GLUCOSE,RANDOM 439 mg/dL (74-106)
--- NOTE | 2018-03-18 12:07 | PN ---
S CIWA - CIWA Score Nausea/Vomitin Muscle Tremors: 4-Moderate,w/Arms Extend Anxiety: 4-Mod. Anxious/Guarded Agitation: 4-Moderately Restless Paroxysmal Sweats: 3 Orientation: 0-Oriented Tacttile Disturbances: 0-None Auditory Disturbances: 0-None Visual Disturbances: 0-None Headache: 1-Very Mild CIWA-Ar Total Score: 18 BHS Progress Note (SOAP) Subjective: Tremor, interrupted sleep Objective: 03/18/18 12:02 Last Vital Signs Temp Pulse Resp BP Pulse Ox 99.1 F 97 H 18 138/94 03/18/18 09:21 03/18/18 09:21 03/18/18 09:21 03/18/18 09:21 Laboratory Tests 03/17/18 03/17/18 03/17/18 16:56 17:53 21:19 WBC RBC Hgb Hct MCV MCH MCHC RDW Plt Count MPV Sodium Potassium Chloride Carbon Dioxide Anion Gap BUN Creatinine Creat Clearance w eGFR POC Glucometer > 600 > 600 432 Random Glucose Calcium Total Bilirubin AST ALT Alkaline Phosphatase Total Protein Albumin RPR Titer 03/18/18 03/18/18 03/18/18 07:06 07:30 07:30 WBC 5.2 RBC 4.40 Hgb 10.0 L Hct 32.7 L MCV 74.3 L MCH 22.7 L MCHC 30.6 L RDW 16.9 H Plt Count 167 D MPV 9.0 Sodium 132 L Potassium 4.2 Chloride 98 Carbon Dioxide 27 Anion Gap 7 L BUN 21 H Creatinine 1.0 Creat Clearance w eGFR > 60 POC Glucometer 442 Random Glucose 439 H* Calcium 9.0 Total Bilirubin 0.3 AST 32 ALT 16 Alkaline Phosphatase 75 Total Protein 7.0 Albumin 2.8 L RPR Titer 03/18/18 03/18/18 07:30 11:21 WBC RBC Hgb Hct MCV MCH MCHC RDW Plt Count MPV Sodium Potassium Chloride Carbon Dioxide Anion Gap BUN Creatinine Creat Clearance w eGFR POC Glucometer 349 Random Glucose Calcium Total Bilirubin AST ALT Alkaline Phosphatase Total Protein Albumin RPR Titer Nonreactive Labs reviewed: serum glucose 439, bun 21 Assessment: 03/18/18 12:04 Withdrawal sxs Noted with hyperglycemia and azotemia Plan: Continue detox Hyperglycemia secondary to DMT2: continue present regimen, encouraged adherence to diabetic diet Azotemia: encouraged PO water intake
[2018-03-18] MEDS ORDERED: INSULIN (NOVOLOG) ASPART 100 UNITS/ML 10ML VIAL SQ ONE (21:13)
--- NOTE | 2018-03-18 21:15 | PN ---
[facility] Progress Note Note: Vital Signs Temperature 99.5 F 03/18/18 18:34 Pulse Rate 84 03/18/18 18:25 Respiratory Rate 16 03/18/18 18:25 Blood Pressure 128/72 03/18/18 18:25 O2 Sat by Pulse Oximetry (%) Laboratory Last Values WBC 5.2 K/mm3 (4.0-10.0) 03/18/18 07:30 RBC 4.40 M/mm3 (4.00-5.60) 03/18/18 07:30 Hgb 10.0 GM/dL (11.7-16.9) L 03/18/18 07:30 Hct 32.7 % (35.4-49) L 03/18/18 07:30 MCV 74.3 fl (80-96) L 03/18/18 07:30 MCH 22.7 pg (25.7-33.7) L 03/18/18 07:30 MCHC 30.6 g/dl (32.0-35.9) L 03/18/18 07:30 RDW 16.9 % (11.9-15.9) H 03/18/18 07:30 Plt Count 167 K/MM3 (134-434) D 03/18/18 07:30 MPV 9.0 fl (7.5-11.1) 03/18/18 07:30 Sodium 132 mmol/L (136-145) L 03/18/18 07:30 Potassium 4.2 mmol/L (3.5-5.1) 03/18/18 07:30 Chloride 98 mmol/L (98-107) 03/18/18 07:30 Carbon Dioxide 27 mmol/L (21-32) 03/18/18 07:30 Anion Gap 7 MMOL/L (8-16) L 03/18/18 07:30 BUN 21 mg/dL (7-18) H 03/18/18 07:30 Creatinine 1.0 mg/dL (0.55-1.3) 03/18/18 07:30 Creat Clearance w eGFR > 60 (>60) 03/18/18 07:30 POC Glucometer 173 UNITS (80-120) 03/18/18 16:25 Random Glucose 439 mg/dL (74-106) H* 03/18/18 07:30 Calcium 9.0 mg/dL (8.5-10.1) 03/18/18 07:30 Total Bilirubin 0.3 mg/dL (0.2-1) 03/18/18 07:30 AST 32 U/L (15-37) 03/18/18 07:30 ALT 16 U/L (13-61) 03/18/18 07:30 Alkaline Phosphatase 75 U/L (45-117) 03/18/18 07:30 Total Protein 7.0 g/dl (6.4-8.2) 03/18/18 07:30 Albumin 2.8 g/dl (3.4-5.0) L 03/18/18 07:30 RPR Titer Nonreactive (NONREACTIVE) 03/18/18 07:30 report received from [facility] novolog 8 units ordered increase fluids continue to monitor
[2018-03-18] MEDS: THIAMINE HCL 100 MG TABLET (FP) PO SCH (22:14)
[2018-03-19] MEDS ORDERED: INSULIN (NOVOLOG) ASPART 100 UNITS/ML 10ML VIAL ONE (07:07)
[2018-03-19] MEDS: metFORMIN HCL 500 MG TABLET (FP) PO SCH (07:10)
[2018-03-19] MEDS: INSULIN (NOVOLOG) ASPART 100 UNITS/ML 10ML VIAL SQ SCH (07:11)
[2018-03-19 09:08] VITALS: BP 133/74; PULSE 89; TEMP 98.4
[2018-03-19] MEDS ORDERED: diazePAM 5 MG TABLET PO SCH (10:00)
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
[2018-03-19 15:06] LABS: URINE APPEARANCE CLEAR; URINE BILIRUBIN NEGATIVE (<2.0 mg/dL); URINE COLOR STRAW; URINE GLUCOSE (UA) 3+ (NEGATIVE); URINE KETONE NEGATIVE (NEGATIVE); URINE LEUK ESTERASE NEGATIVE (NEGATIVE); URINE NITRITE NEGATIVE (NEGATIVE); URINE PROTEIN NEGATIVE (NEGATIVE); URINE UROBILINOGEN NEGATIVE mg/dL (0.2-1.0)
[2018-03-20] MEDS ORDERED: diazePAM 5 MG TABLET PO SCH (10:00)
== END 2018-03-19 10:25 | disposition left against medical advice (07) | DRG 770 ==
LOC: YASAS 13:12 → Y3N 17:21
PROC: HZ2ZZZZ Detoxification Services for Substance Abuse Treatment (ICD-10-PCS; principal; 2018-03-17)
DX: F10.230 Alcohol dependence with withdrawal, uncomplicated (principal); F14.20 Cocaine dependence, uncomplicated; F12.20 Cannabis dependence, uncomplicated; F17.210 Nicotine dependence, cigarettes, uncomplicated; I10 Essential (primary) hypertension; E11.65 Type 2 diabetes mellitus with hyperglycemia; E78.5 Hyperlipidemia, unspecified; Z21 Asymptomatic human immunodeficiency virus [HIV] infection status; R00.0 Tachycardia, unspecified; B18.2 Chronic viral hepatitis C; R79.89 Other specified abnormal findings of blood chemistry; Z91.14 Patient's other noncompliance with medication regimen; Z91.013 Allergy to seafood; Z87.898 Personal history of other specified conditions; Z79.4 Long term (current) use of insulin; Z79.84 Long term (current) use of oral hypoglycemic drugs
CPT/HCPCS: 36415; 80053; 81003; 82962; 85027; 86593; 93005; 93010